=== PATIENT | female | born 2000 | race Caucasian/White ===

== ENCOUNTER 2020-09-16 02:23 | Emergency (ER) | payer OTHER, SELFPAY ==
[2020-09-16 02:32] VITALS: BP 129/65; PULSE 87; RESP 18; TEMP 36.3; O2SAT 99; BMI 35.9
[2020-09-16 04:00] VITALS: BP 129/65; PULSE 87; RESP 18; TEMP 36.3; O2SAT 99
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
== END 2020-09-16 06:44 | disposition home or self-care (01) ==
PROVIDERS: Emergency Provider Emergency Medicine Emergency Medical Services
DX: S09.90XA Unspecified injury of head, initial encounter (principal); V47.1XXA Car passenger injured in collision with fixed or stationary object in nontraffic accident, initial encounter; Y93.89 Activity, other specified; Y92.414 Local residential or business street as the place of occurrence of the external cause; Y99.9 Unspecified external cause status
CPT/HCPCS: 99283; 99284

== ENCOUNTER 2020-11-12 23:13 | Emergency (ER) | payer OTHER, SELFPAY ==
[2020-11-12 23:28] VITALS: BP 112/72; PULSE 88; RESP 16; TEMP 36.9; O2SAT 99; BMI 34.0
--- NOTE | 2020-11-12 23:37 | ED.DENTAL ---
HPI - Dental/Oral General Chief complaint: Dental/Oral Stated complaint: tooth infection Time Seen by Provider: 11/12/20 23:35 Source: patient Mode of arrival: ambulatory Limitations: no limitations History of Present Illness MD Complaint: tooth pain Location: Tooth # (R lower wisdom tooth) Onset (ago): month(s) (1 month ) Duration: constant Severity: moderate Relieving factors: nothing Exacerbating factors: chewing, cold and heat Associated symptoms: gum swelling Treatment prior to arrival: none Related Data Previous Rx's Medication Instructions Recorded ibuprofen 400 mg tablet 400 mg PO Q6H PRN #20 tab 09/16/20 amoxicillin 875 mg-potassium 1 tab PO BID #14 tab 11/12/20 clavulanate 125 mg tablet (Augmentin) hydrocodone 5 mg-acetaminophen 325 1 tab PO Q6H PRN #12 tab 11/12/20 mg tablet Allergies Allergy/AdvReac Type Severity Reaction Status Date / Time No Known Allergies Allergy Verified 11/12/20 23:27 [No Known Allergies*] Review of Systems Review of Systems: Constitutional : No Fever, No Chills ENT/Mouth : No swallowing difficulty, no change in voice, positive dental pain, positive jaw pain, no facial swelling Eyes: No Eye Pain, No Swelling Cardiovascular : No Chest Pain, No SOB Respiratory : No Cough, No Sputum Gastrointestinal : No Nausea, No Vomiting, No Diarrhea Genitourinary : No Dysuria Musculoskeletal : No Myalgias Skin : No rash Neuro : No Weakness, No Numbness, No Headache PMFSH Past Medical History Attestation statement: The following information was validated with the patient. Medical History (Updated 11/12/20 @ 23:52 by Debby Seals DO) Dental impaction Social History Social History Alcohol intake: unknown Patient Tobacco Use Status: Tobacco use Unknown Advance Directives: No Patient : No Physical Exam Vital Signs: Vital Signs: Last Vital Signs Temp 98.5 F 11/12/20 23:28 Pulse 88 11/12/20 23:28 Resp 16 11/12/20 23:28 BP 112/72 11/12/20 23:28 Pulse Ox 99 11/12/20 23:28 Body Mass Index 34.0 Appearance: Alert. Oriented X3. No acute distress. Eyes: Pupils equal, round and reactive to light. ENT: Pharynx normal. R lower wisdom tooth is impacted - gingival erythema and ttp, small firm bump noted inside inner portion of mouth near tooth but it is not fluctuant, no trismus, no sublingual or submandibular ttp Neck: Normal inspection. Neck supple. CVS: Normal heart rate and rhythm. Pulses normal. Respiratory: No respiratory distress. Breath sounds normal. Abdomen: Soft and non-tender. Skin: Skin warm and dry. Normal skin color. Extremities: No lower extremity edema. Neuro: Oriented X 3. No motor deficit. No sensory deficit. MDM - Dental/Oral MDM Narrative Medical decision making narrative: 20 yo female with impacted R lower wisdom tooth - no kaylyn abscess or concern for deeper space infection - has plan to see oral surgery as outpatient - start on antibiotics, otherwise not toxic Discharge Plan Discharge Clinical Impression: Dental impaction Patient Disposition: Home, Self-Care Instructions: Toothache (ED) Additional Instructions: return to ED for any worsening symptoms or concerns please follow up with oral surgeon Prescriptions: New hydrocodone-acetaminophen 5-325 mg tablet 1 tab PO Q6H PRN (Reason: pain) Qty: 12 RF: 0 amoxicillin-pot clavulanate [Augmentin] 875-125 mg tablet 1 tab PO BID Qty: 14 RF: 0 No Action ibuprofen 400 mg tablet 400 mg PO Q6H PRN (Reason: pain) Qty: 20 RF: 0
[2020-11-13] MEDS: HYDROcodone Bit/Acetam 5/325 TABLET 1 TAB PO (00:29)
[2020-11-13] MEDS: Ondansetron ODT 4 MG TAB.RAPDIS TRANSLINGU (00:30)
[2020-11-13] MEDS: Amoxicillin/Potassium Clav 875 MG TABLET PO (00:30)
== END 2020-11-13 00:46 | disposition home or self-care (01) ==
PROVIDERS: Emergency Provider Emergency Medicine
DX: K01.1 Impacted teeth (principal)
CPT/HCPCS: 99283; 99284

== ENCOUNTER 2021-04-18 10:44 | Outpatient (REF) | payer OTHER, SELFPAY ==
[2021-04-18 11:25] LABS: Hemoglobin 12.1 g/dl (12.0-16.0); Mean Corpuscular HGB Conc 31.8 g/dl (31.0-35.0); Mean Corpuscular Hemoglobin 25.3 pg (27.0-33.0); Mean Corpuscular Volume 79.3 fL (80.0-98.0); Mean Platelet Volume 10.3 fL (9.4-12.3); Platelet Count 230 X10*3/uL (160-400); Red Blood Count 4.79 X10*6/uL (4.20-5.50); Red Cell Distribution Width 13.7 % (11.0-16.0); White Blood Count 4.1 X10*3/uL (4.8-10.8)
[2021-04-18 12:00] LABS: Alanine Aminotransferase 13 U/L (0-31); Albumin Level 3.9 g/dL (3.5-5.0); Alkaline Phosphatase 52 U/L (39-117); Anion Gap 9 (12-20); Aspartate Amino Transferase 11 U/L (5-31); Bilirubin Direct < 0.2 mg/dL (0.0-0.5); Bilirubin Total 0.4 mg/dL (0.0-1.0); Blood Urea Nitrogen 14 mg/dL (9-16); Calcium 9.4 mg/dL (8.4-10.2); Carbon Dioxide 26 mmol/L (22-29); Chloride 107 mmol/L (96-108); Cholesterol 186 mg/dL; Estimated Glomerular Filt Rate > 60; Glucose Fasting 95 mg/dL (60-99); HDL Cholesterol 64 mg/dL; LDL Cholesterol Calculated 103 mg/dl; Potassium 4.2 mmol/L (3.3-5.1); Sodium 138 mmol/L (135-145); Total Protein 6.7 g/dL (6.5-8.0); Triglycerides 98 mg/dL
[2021-04-18 12:22] LABS: TSH reflex Free T4 2.22 uIU/mL (0.32-4.0)
== END 2021-04-18 10:45 | disposition home or self-care (01) ==
LOC: HO.LAB 10:44
PROVIDERS: PCP Nurse Practitioner Family; Visit Provider Nurse Practitioner Family
DX: E78.00 Pure hypercholesterolemia, unspecified (principal); J30.89 Other allergic rhinitis; F41.9 Anxiety disorder, unspecified; F32.A Depression, unspecified; Z76.89 Persons encountering health services in other specified circumstances
CPT/HCPCS: 36415; 80048; 80061; 80076; 84443; 85027

== ENCOUNTER 2021-04-25 09:08 | Outpatient (REF) | payer OTHER, SELFPAY ==
[2021-04-25 09:57] LABS: COVID-19 Test Positive (Negative)
== END 2021-04-25 09:09 | disposition home or self-care (01) ==
LOC: HO.LAB 09:08
PROVIDERS: Visit Provider Internal Medicine
DX: Z20.822 Contact with and (suspected) exposure to COVID-19 (principal)
CPT/HCPCS: 87635; C9803

== ENCOUNTER 2021-04-27 11:30 | Outpatient (REF) | payer OTHER, SELFPAY ==
[2021-04-27 11:47] LABS: COVID-19 Test Positive (Negative)
== END 2021-04-27 11:31 | disposition home or self-care (01) ==
LOC: HO.LAB 11:30
PROVIDERS: Visit Provider Internal Medicine
DX: Z20.822 Contact with and (suspected) exposure to COVID-19 (principal)
CPT/HCPCS: 87635; C9803

== ENCOUNTER 2022-01-31 14:18 | Outpatient (REF) | payer OTHER, SELFPAY ==
[2022-01-31 19:05] LABS: CT PCR NOT DETECTED (Not Detect.); NG PCR NOT DETECTED (Not Detect.)
[2022-02-01 09:15] LABS: BV Int Neg Control Negative (Negative); BV Int Pos Control Positive (Positive)
== END 2022-01-31 14:19 | disposition home or self-care (01) ==
LOC: HO.LNP 14:18
PROVIDERS: Visit Provider Advanced Practice Midwife
DX: Z01.419 Encounter for gynecological examination (general) (routine) without abnormal findings (principal); Z87.42 Personal history of other diseases of the female genital tract
CPT/HCPCS: 87480; 87491; 87510; 87591; 87660; 88142

== ENCOUNTER 2022-03-07 15:23 | Outpatient (REF) | payer OTHER, SELFPAY ==
--- NOTE | ~2022-03-07 | US_ITS ---
EXAMINATION: US PELVIS CLINICAL INFORMATION: History of ovarian cyst, regular cycle, last menstrual period 02/26/2022 COMPARISON: None TECHNIQUE: Ultrasound of the pelvis is performed using both transabdominal and transvaginal transducers along with Doppler. Transvaginal imaging is performed due to inadequate visualization transabdominally. FINDINGS: The uterus is heterogeneous and measures 6.6 x 3.1 x 4.0 cm. No discrete fibroids. No significant free fluid. Complex cyst measuring 0.8 x 0.5 x 0.6 cm at the lower level of the cervix, possibly a nabothian cyst. Endometrial thickness is 0.8 cm. No significant free fluid. Right ovary measures 3.5 x 1.9 x 2.5 cm, volume 8.7 mL. Left ovary measures 2.8 x 1.8 x 1.9 cm, volume 5.0 mL. Bilateral ovaries demonstrate multiple small follicles. US/US pelvic and transvaginal IMPRESSION: 1. Complex 0.8 cm cyst at the lower level of the cervix may represent a nabothian cysts. 2. Endometrial thickness is 0.8 cm and endometrium appears multilayered. 3. Bilateral ovaries as detailed above with multiple small follicles.
== END 2022-03-07 15:24 | disposition home or self-care (01) ==
LOC: HO.US 15:23
PROVIDERS: Visit Provider Advanced Practice Midwife
DX: Z87.42 Personal history of other diseases of the female genital tract (principal); Z12.4 Encounter for screening for malignant neoplasm of cervix
CPT/HCPCS: 76830; 76856

== ENCOUNTER 2022-06-21 16:21 | Outpatient (REF) | payer OTHER, SELFPAY ==
--- NOTE | ~2022-06-21 | US_ITS ---
EXAMINATION: US PELVIS CLINICAL INFORMATION: Personal history of other diseases of the female genital tract. COMPARISON: Pelvic ultrasound 03/07/2022. TECHNIQUE: Ultrasound of the pelvis is performed using both transabdominal and transvaginal transducers along with Doppler. Transvaginal imaging is performed due to inadequate visualization transabdominally. FINDINGS: UTERUS: The uterus is anteverted and measures 6.8 x 3.2 x 3.6 cm. The double wall endometrial thickness is 1.0 mm. The uterus is smooth in contour and has normal myometrial echogenicity. No visible fibroid. Nabothian cysts are present in the cervix. ADNEXA: Both ovaries are visualized. There is normal color flow to the adnexa. There is no ovarian torsion. There is no pelvic ascites or fluid collection. Right ovary measures 3.9 x 2.8 x 2.1 cm for a volume of 12 mL with multiple follicles. Left ovary measures 2.7 x 2.3 x 1.6 cm for a volume of 5.2 mL with multiple follicles. US/US pelvic and transvaginal IMPRESSION: No significant abnormality is seen.
== END 2022-06-21 16:22 | disposition home or self-care (01) ==
LOC: HO.US 16:21
PROVIDERS: PCP Internal Medicine; Visit Provider Advanced Practice Midwife
DX: N88.8 Other specified noninflammatory disorders of cervix uteri (principal); Z87.42 Personal history of other diseases of the female genital tract
CPT/HCPCS: 76830; 76856

== ENCOUNTER → 2022-08-18 09:38 | Outpatient (BNVA) | payer OTHER, SELFPAY | PROVIDERS: PCP Internal Medicine; Visit Provider Advanced Practice Midwife | DX: Z30.09 Encounter for other general counseling and advice on contraception (principal); L70.0 Acne vulgaris; E66.9 Obesity, unspecified; Z87.42 Personal history of other diseases of the female genital tract; Z12.4 Encounter for screening for malignant neoplasm of cervix; Z68.34 Body mass index [BMI] 34.0-34.9, adult | CPT/HCPCS: 99212 ==

== ENCOUNTER 2022-12-07 16:32 | Outpatient (AMB) | payer OTHER, SELFPAY ==
[2022-12-07 16:42] VITALS: BP 120/78; BMI 35.5
--- NOTE | 2022-12-07 16:42 | A.OFFPC_ITS ---
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 Required: No Accompanied by: Self / Same As Patient Allergies No Known Allergies [No Known Allergies*] Allergy (Verified 12/07/22 17:07) Medication List - Last Reconciled 12/07/22 by Yessica Campos MD albuterol sulfate 90 mcg/actuation (Ventolin HFA) 2 puffs inhalation Q4-6H PRN cetirizine 10 mg PO DAILY clindamycin phosphate 1% 1 appl topical DAILY norelgestromin-ethin.estradiol 150-35 mcg/24 hr (Xulane) 1 patch topical QWEEK Tobacco use date assessed: 04/20/22 Dental Screening Dental Screen Date: 12/07/22 Did you have a dental visit in the last 12 months?: No Did you have a dental problem in the last 6 months where you did not have access to dental care?: No Was dental information given to patient?: Patient has dentist HPI HPI Comments History of Present Illness Details This is a 22-year-old female with mild major depression, anxiety, obesity and mild persistent asthma that comes today for follow-up on her conditions. She will be referred to counseling for depression with anxiety. She is obese with a BMI of 35.5 and was advised to diet and exercise to reach BMI goal less than 30. Use rescue inhaler about once a month. Denies any chest pain or shortness of breath. No fever or cough. [facility] Medical History (Updated 12/08/22 @ 08:33 by Yessica Campos MD) Dental impaction Surgical History History of spinal surgery Hx of tonsillectomy Family History Mother Asthma Carpal tunnel syndrome Father No problems noted. 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 Ted Ortiz, Tequila Carrasco, Edgar Bueno and colleagues, with an educational lizzie from [employer]. Review of Systems Const All systems reviewed & are unremarkable except as noted in HPI and below Eyes Reports no additional complaints, Denies change in vision and Denies other visual disturbances Card Denies chest pain at rest, Denies chest pain with activity, Denies edema, Denies irregular heart rhythm, Denies claudication, Denies dyspnea, Denies dyspnea on exertion, Denies orthopnea, Denies paroxysmal nocturnal dyspnea and Denies slow heart rate Resp Denies cough, Denies dyspnea and Denies dyspnea on exertion GI Denies abdominal pain, Denies change in bowel habits, Denies excessive flatus, Denies nausea and Denies vomiting Denies urinary incontinence, Denies urinary hesitancy and Denies urinary urgency Musc Denies abnormal gait, Denies atrophy, Denies deformity and Denies limited range of motion Skin/Breast Denies bleeding lesions, Denies changing lesions and Denies rash Neuro Denies abnormal gait, Denies behavioral changes and Denies lack of coordination Psych Denies behavioral changes Physical exam (Primary Care) Vital Signs: Last Vital Signs BP 120/78 12/07/22 16:42 BMI result Body Mass Index 35.5 Tobacco/Smoking Status: Tobacco use Status Tobacco use date assessed 04/20/22 12/07/22 16:48 Patient Tobacco Use Status Never used Tobacco 12/07/22 16:48 e-Cigarette/Vaping Use Never Used 12/07/22 16:48 Thrive Assessment: Date of Thrive Assessment Date Thrive assessed 04/20/22 12/07/22 16:48 Eyes General: appearance normal, both eyes and all related structures Eyelids: Yes eyelids normal Conjunctivae: conjunctivae normal Neck Neck: Yes normal visual inspection and Yes supple Resp Effort & Inspection: normal respiratory effort Auscultation: clear to auscultation bilaterally Cardio Jugular venous distension: no JVD Rate: regular rate Rhythm: regular rhythm Heart sounds: S1 normal heart sound present and S2 normal heart sound present Extrem General: Yes full ROM Assessment and Plan Assessment & Plan (1) Mild major depression: Code(s): F32.0 - Major depressive disorder, single episode, mild Plan: Referred to counseling (2) TAMERA (generalized anxiety disorder): Code(s): F41.1 - Generalized anxiety disorder Plan: Referred to counseling (3) Mild persistent asthma: Code(s): J45.30 - Mild persistent asthma, uncomplicated Plan: Use rescue inhaler as needed (4) Obesity (BMI 35.0-39.9 without comorbidity): Code(s): E66.9 - Obesity, unspecified Plan: Start diet and exercise. BMI goal is less than 30. Orders: Referrals Counseling Referral F32.0 - Major depressive disorder, single episode, mild, F41.1 - Generalized anxiety disorder Coding Level of Care Code Est Pt Level 4 (67270) Diagnoses Mild major depression F32.0 TAMERA (generalized anxiety disorder) F41.1 Mild persistent asthma J45.30 Obesity (BMI 35.0-39.9 without comorbidity) E66.9 Time Spent (min) 22
== END 2022-12-07 17:16 | disposition home or self-care (01) ==
PROVIDERS: PCP Internal Medicine; Visit Provider Internal Medicine
DX: J45.30 Mild persistent asthma, uncomplicated (principal); F32.0 Major depressive disorder, single episode, mild; E66.9 Obesity, unspecified; Z68.35 Body mass index [BMI] 35.0-35.9, adult; F41.1 Generalized anxiety disorder
CPT/HCPCS: 99214

== ENCOUNTER 2023-04-25 17:31 | Outpatient (AMB) | payer OTHER, SELFPAY ==
--- NOTE | 2023-04-25 17:35 | MHC.PC.OV ---
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 Required: No Accompanied by: Self / Same As Patient Allergies No Known Allergies [No Known Allergies*] Allergy (Verified 04/25/23 17:45) Medication List - Last Reconciled 04/25/23 by Yessica Campos MD albuterol sulfate 90 mcg/actuation (Ventolin HFA) 2 puffs inhalation Q4-6H PRN cetirizine 10 mg PO DAILY clindamycin phosphate 1% 1 appl topical DAILY norelgestromin-ethin.estradiol 150-35 mcg/24 hr (Xulane) 1 patch topical QWEEK Tobacco use date assessed: 04/25/23 Dental Screening Dental Screen Date: 04/25/23 Did you have a dental visit in the last 12 months?: Yes Did you have a dental problem in the last 6 months where you did not have access to dental care?: No Was dental information given to patient?: Patient has dentist HPI HPI Comments History of Present Illness Details This is a 23-year-old female that comes for her physical exam. Last Pap smear was 2021. Has mild major depression and would like counseling. Complains of left shoulder pain with limited elevation and abduction and will be referred to physical therapy. No chest pain or shortness of breath. [facility] Medical History Dental impaction Surgical History Hx of tonsillectomy History of spinal surgery Family History Mother Asthma Carpal tunnel syndrome Father No problems noted. 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 1. Little interest or pleasure in doing things: several days 2. Feeling down, depressed, or hopeless: several days 3. Trouble falling or staying asleep, or sleeping too much: several days 4. Feeling tired or having little energy: nearly every day 5. Poor appetite or overeating: several days 6. Feeling bad about yourself - or that you are a failure or have let yourself or your family down: several days 7. Trouble concentrating on things, such as reading the newspaper or watching television: nearly every day 8. Moving or speaking so slowly that other people could have noticed. Or the opposite - being so fidgety or restless that you have been moving around a lot more than usual: more than half the days 9. Thoughts that you would be better off or of hurting yourself in some way: not at all Total score: 13 Depression Screening Interpretation: Positive Depression Screening Follow-up: Existing condition and Community Mental Health Worker F/U Depression Screening Done: Yes 70458 - PHQ-9 Billing: Yes Source: Developed by Drs. Ted Ortiz, Tequila Carrasco, Edgar Bueno and colleagues, with an educational lizzie from [employer]. Thrive Questionnaire Date Thrive assessed: 04/25/23 I am a: Patient What is your living situation today?: I have a steady place to live Within the past 12 months, did the food you bought not last and you didn't have the money to get more?: Never true Within the past 12 months, did you worry whether your food would run out before you got money to buy more?: Never true Do you have trouble paying for medicines?: No Do you have trouble getting transportation to medical appointments?: No Do you have trouble paying your heating and electricity bill?: No Do you have trouble taking care of your child, family member or friend?: No Do you have trouble with day-to-day activities such as bathing, preparing meals, shopping, managing finances, etc.?: No Are you currently unemployed and looking for a job?: No Are you interested in more education?: No Please select the resources that you would like help with: None AUDIT C Alcohol Use Questionnaire (AUDIT-C) 1. How often do you have a drink containing alcohol?: Never Total Score: 0 Score Reviewed/Action Taken: No TAMERA-7 AMB Questionnaire TAMERA-7 Date TAMERA - 7 assessed: 04/25/23 Feeling nervous, anxious, or on edge: 2 = More than half the days Not being able to stop or control worryin = Not at all Worrying too much about different things: 1 = Several days Trouble relaxin = Several days Being so restless that it is hard to sit still: 1 = Several days Becoming easily annoyed or irritable: 1 = Several days Feeling afraid as if something awful might happen: 1 = Several days Total TAMERA-7 score (0-4 normal; 5-9 mild; 10-14 moderate; 15-21 severe): 7 Source: Developed by Drs. Ted Ortiz, Tequila Carrasco, Edgar Bueno and colleagues, with an educational lizzie from [employer]. TAMERA-7 Assessment Billing TAMERA-7 Assessment Tool: TAMERA-7 Assessment 74493 Review of Systems Const All systems reviewed & are unremarkable except as noted in HPI and below Eyes Reports no additional complaints, Denies change in vision and Denies other visual disturbances Card Denies chest pain at rest, Denies chest pain with activity, Denies edema, Denies irregular heart rhythm, Denies claudication, Denies dyspnea, Denies dyspnea on exertion, Denies orthopnea, Denies paroxysmal nocturnal dyspnea and Denies slow heart rate Resp Denies cough, Denies dyspnea and Denies dyspnea on exertion GI Denies abdominal pain, Denies change in bowel habits, Denies excessive flatus, Denies nausea and Denies vomiting Denies urinary incontinence, Denies urinary hesitancy and Denies urinary urgency Musc Denies abnormal gait, Denies atrophy, Denies deformity and Denies limited range of motion Skin/Breast Denies bleeding lesions, Denies changing lesions and Denies rash Neuro Denies abnormal gait, Denies behavioral changes, Denies confusion and Denies lack of coordination Psych Denies behavioral changes and Denies confusion Physical exam (Primary Care) Vital Signs: Last Vital Signs BP 130/80 04/25/23 17:37 BMI result Body Mass Index 34.7 Tobacco/Smoking Status: Tobacco use Status Tobacco use date assessed 04/25/23 04/25/23 17:46 Patient Tobacco Use Status Never used Tobacco 04/25/23 17:37 e-Cigarette/Vaping Use Never Used 04/25/23 17:37 PHQ-9: PHQ-9 Score PHQ-9: Total score 13 04/25/23 17:49 Depression Screening Interpretation: Positive Depression Screening Follow-up: Existing condition and Community Mental Health Worker F/U Thrive Assessment: Date of Thrive Assessment Date Thrive assessed 04/25/23 04/25/23 17:46 Const General: No confusion Orientation/consciousness: patient oriented x3 and No confusion HENMT Head: Yes normal to inspection, Yes normocephalic and Yes atraumatic Ears: external ears normal Eyes General: appearance normal, both eyes and all related structures Eyelids: Yes eyelids normal Conjunctivae: conjunctivae normal Neck Neck: Yes normal visual inspection and Yes supple Resp Effort & Inspection: normal respiratory effort Auscultation: clear to auscultation bilaterally Cardio Jugular venous distension: no JVD Rate: regular rate Rhythm: regular rhythm Heart sounds: S1 normal heart sound present and S2 normal heart sound present GI Inspection: Yes normal to inspection Palpation (GI): Soft to palpation and nontender Auscultation: normal bowel sounds Skin General skin exam: no rashes or lesions noted Neuro General: patient oriented x3, no focal motor deficits and No confusion Extrem General: Yes full ROM Psych Appearance: grossly normal Assessment and Plan Assessment & Plan (1) Physical exam: Code(s): Z00.00 - Encounter for general adult medical examination without abnormal findings Plan: Repeat in a year. (2) Mild major depression: Code(s): F32.0 - Major depressive disorder, single episode, mild Plan: Referred to counseling. Orders: Orders Comprehensive [place]. Panel Fast Today Z00.00 - Encounter for general adult medical examination without abnormal findings PT Evaluation and Treatment Today M25.512 - Pain in left shoulder Lipid Panel Today Z00.00 - Encounter for general adult medical examination without abnormal findings HIV Ab/Ag Today Z20.2 - Contact with and (suspected) exposure to infections with a predominantly sexual mode of transmission Syphilis Screen Today Z20.2 - Contact with and (suspected) exposure to infections with a predominantly sexual mode of transmission CT NG by PCR Today Z20.2 - Contact with and (suspected) exposure to infections with a predominantly sexual mode of transmission Referrals Counseling Referral F32.0 - Major depressive disorder, single episode, mild Medications: New naproxen 500 mg PO BID PRN 10 tabs 0RF pain 5 days Coding Level of Care Code Est Pt Prev Care 18-39y([id number]) Diagnoses Physical exam Z00.00 Mild major depression F32.0 Additional Codes TAMERA-7 Assessment Billing - TAMERA-7 Assessment Tool: TAMERA-7 Assessment 30630 ([id number]) Time Spent (min) 32
[2023-04-25 17:37] VITALS: BP 130/80; BMI 34.7
== END 2023-04-25 17:56 | disposition home or self-care (01) ==
LOC: HO.HMGH 17:31
PROVIDERS: PCP Internal Medicine; Visit Provider Internal Medicine
DX: Z00.00 Encounter for general adult medical examination without abnormal findings (principal); F32.0 Major depressive disorder, single episode, mild
CPT/HCPCS: 99395

== ENCOUNTER 2023-07-05 11:19 | Outpatient (REF) | payer OTHER, SELFPAY ==
[2023-07-05 12:55] LABS: Alanine Aminotransferase 16 U/L (0-31); Alkaline Phosphatase 75 U/L (39-117); Anion Gap 11 (12-20); Aspartate Amino Transferase 14 U/L (5-31); Bilirubin Total 0.4 mg/dL (0.0-1.0); Blood Urea Nitrogen 13 mg/dL (9-16); Calcium 9.3 mg/dL (8.4-10.2); Carbon Dioxide 28 mmol/L (22-29); Chloride 106 mmol/L (96-108); Cholesterol 167 mg/dL (<200); Estimated Glomerular Filt Rate > 60; Glucose Fasting 91 mg/dL (60-99); HDL Cholesterol 59 mg/dL (>40); LDL Cholesterol Calculated 102 mg/dL (<100); Potassium 4.1 mmol/L (3.3-5.1); Sodium 141 mmol/L (135-145); Total Protein 6.8 g/dL (6.5-8.0); Triglycerides 34 mg/dL (<150)
[2023-07-05 15:37] LABS: CT PCR NOT DETECTED (Not Detect.); NG PCR NOT DETECTED (Not Detect.)
[2023-07-06 04:00] LABS: Syphilis Screen Nonreactive (Nonreactive)
[2023-07-06 04:17] LABS: HIV AB/AG Nonreactive (Nonreactive); HIV Num 1 0.05 S/CO (0.00-0.99)
== END 2023-07-05 11:20 | disposition home or self-care (01) ==
LOC: HO.LAB 11:19
PROVIDERS: PCP Internal Medicine; Visit Provider Internal Medicine
DX: Z00.00 Encounter for general adult medical examination without abnormal findings (principal); Z11.4 Encounter for screening for human immunodeficiency virus [HIV]; Z20.2 Contact with and (suspected) exposure to infections with a predominantly sexual mode of transmission
CPT/HCPCS: 0353U; 80053; 80061; 86780; 87389

== ENCOUNTER 2023-08-28 08:56 | Outpatient (AMB) | payer OTHER, SELFPAY ==
--- NOTE | 2023-08-28 09:06 | A.OFFVIS_ITS ---
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 Required: No Information Interpreted: clinical only Traffic Division Commanding Officer: Traffic Division Commanding Officer Present Allergies No Known Allergies [No Known Allergies*] Allergy (Verified 08/28/23 09:07) Medication List - Last Reconciled 08/28/23 by Ayesha Kate CNM albuterol sulfate 90 mcg/actuation (Ventolin HFA) 2 puffs inhalation Q4-6H PRN cetirizine 10 mg PO DAILY clindamycin phosphate 1% 1 appl topical DAILY naproxen 500 mg PO BID PRN 5 days norelgestromin-ethin.estradiol 150-35 mcg/24 hr (Xulane) 1 patch topical QWEEK Is last menstrual period known: Yes Last menstrual period: 08/22/23 HPI HPI 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 She also wants refills on her patches. She using them help her have regular periods as well as for control. She has wondered and we have discussed previously whether not she had all of the signs of PCOS and I previously ordered lab work for her and she thought she had gotten it but I can not find evidence in the system of those labs done in the last year so she still would be interested in getting them done so I will reorde r some of the PCOS marker labs. I reviewed that because she has a history very irregular periods before going on the control patch and multiple follicles in both of her ovaries that she has several of the signs already in addition she does get acne though she says she does not get increased facial hair she is overweight and is trying to be healthier she has an exercise machine in her house that she uses. She is concerned about the PCOS from the point of view of future possible fertility issues. She is not interested in having baby now but maybe in her late 20s she is in a relationship that is good right now. [facility] Medical History Dental impaction Surgical History Hx of tonsillectomy History of spinal surgery Family History Mother Asthma Carpal tunnel syndrome Father No problems noted. 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 Current occupational exposures/hazards: No Cognitive needs: No Hearing needs: No Vision needs: Yes (glasses) Female Reproductive History Menstrual Age of Menarche: 10 Duration of menses: 3-5 days Date of last menstrual period: 08/22/23 control method: patch Total pregnancies: 0 Date of last pap smear: 02/01/22 (negative) Physical Exam Vital Signs: Last Vital Signs BP 122/70 08/28/23 09:07 BMI result Body Mass Index 36.4 Const General: healthy appearing, comfortable, no acute distress, well developed and alert Nutritional Appearance: average body habitus Orientation/consciousness: patient oriented x3 Limitations: no limitations HEENT Head: Yes normocephalic Neck Neck: Yes normal visual inspection Chest Chest palpation & inspection: normal inspection of the chest Breast/axilla inspection: normal inspection of the breasts and normal inspection of the axillae Breast/axilla palpation: normal palpation of the breasts and normal palpation of the axillae Resp Effort & Inspection: normal respiratory effort GI Inspection: Yes normal to inspection, No Abdominal wall edema and No distended Palpation (GI): Soft to palpation and nontender Other: External exam within normal limits vagina pink and moist cervix pink nulliparous uterus small midposition to anteverted. Mobile and nontender adnexa nontender good tone Kegel. General: Yes bladder normal to palpation External Female Exam: normal external appearance and normal appearance of the urethra Speculum Exam - Vagina: normal appearance of the vagina, normal palpation and normal vaginal discharge Speculum Exam - Cervix: normal appearance of the cervix, normal palpation and nontender Bimanual exam- vagina & uterus: normal bimanual exam, normal palpation, uterine size normal, bladder normal to palpation, consistency normal, normal palpation, uterine mobility normal, uterine shape normal, No Cervical tenderness present, non-tender and no cervical motion tenderness Bimanual Exam- Adnexa, other: normal adnexae, no masses, normal and No adnexal tenderness Neuro General: patient oriented x3 Assessment & Plan Assessment & Plan (1) Acne vulgaris: Code(s): L70.0 - Acne vulgaris Category: Medical (2) Hx of ovarian cyst: Code(s): Z87.42 - Personal history of other diseases of the female genital tract Category: Medical (3) History of irregular menstrual cycles: Comment: was started on patches at [facility] as a teen to manage, is continuing on patches with regular cycles, multiple follicles noted on ultrasounds, hormone levels being ordered... Code(s): Z87.42 - Personal history of other diseases of the female genital tract Category: Medical (4) Obesity (BMI 35.0-39.9 without comorbidity): Code(s): E66.9 - Obesity, unspecified Category: Medical (5) Screen for sexually transmitted diseases: Code(s): Z11.3 - Encounter for screening for infections with a predominantly sexual mode of transmission Category: Medical (6) Well woman exam with routine gynecological exam: Code(s): Z01.419 - Encounter for gynecological examination (general) (routine) without abnormal findings Category: Medical (7) Cervical cancer screening: Comment: pap done 01/31/22= negative. Code(s): Z12.4 - Encounter for screening for malignant neoplasm of cervix Category: Medical (8) control counseling: Code(s): Z30.09 - Encounter for other general counseling and advice on contraception Category: Medical Plan -----Discussed in this visit the following: healthy balanced diet, regular and consistent exercise, getting recommended health screens, doing the best she can for her particular health concerns, kegel exercises, pap smear screening and followup recommendations, mammography screening and SBE, normal changes in cycles in her life stage--- . I review the use of the patches she is using them correctly but she was not as clear about when she had to restart the patch she was describing it as being connected to when her period ended and I clarified that the patch needs to be used for 3 consecutive weeks 7 days at a time and then removed and left off for 7 days but a new 1 has to be replaced at exactly 1 week from when it was taken off I refilled her prescription for another year. In addition we again reviewed the whole issue of her irregular menstrual history history of the increased follicles noted on both ovaries and previous ul trasounds and her other symptoms that go along with PCOS of note she did have an elevated blood pressure a year ago at another provider's visit also reviewed her increased LDL that was noted with previous labs by her primary care provider reviewed that many of these all point to the picture of polycystic ovarian syndrome and what she is concerned about it for future fertility in some way she already has the diagnosis the most important thing is for her to keep working on maintaining a weight that is lower so that there are lower levels of circulating hormones in her system and that for future use if she can not teen the healthiest states she can be in when she wants to children she should simply go off the patch and start trying right away she should keep very close records her cycles when she has sex and signs and symptoms of ovulation and I described when that occurs normally and if in 6 months' time after going off the patch and trying and documenting, if she did not conceive by then it would be potts to seek out reproductive assistance but that would be in the future when she goes off control for now in some ways it may be protecting her. At her request I reordered some of the PCOS labs and she get them done when she can of note when I was putting in the orders I did see there were some more fasting labs from her primary care provider in the system as well she intends to get them all done together and ask the lab to draw all of them together. We will have a tele visit to review the results whenever she does get them done. She is on the portal as well. Orders: Orders Testosterone, Free/Total Today E66.9 - Obesity, unspecified, L70.0 - Acne vulgaris, N92.6 - Irregular menstruation, unspecified, Z87.42 - Personal history of other diseases of the female genital tract Prolactin Today E66.9 - Obesity, unspecified, L70.0 - Acne vulgaris, Z87.42 - Personal history of other diseases of the female genital tract DHEA Sulfate Today E66.9 - Obesity, unspecified, L70.0 - Acne vulgaris, Z87.42 - Personal history of other diseases of the female genital tract CT NG by PCR Today Z01.419 - Encounter for gynecological examination (general) (routine) without abnormal findings Bacterial Vaginosis Panel Today Z01.419 - Encounter for gynecological examination (general) (routine) without abnormal findings Thyroid Stimulating Hormone Today E66.9 - Obesity, unspecified, L70.0 - Acne vulgaris, Z87.42 - Personal history of other diseases of the female genital tract Medications: Refilled norelgestromin-ethin.estradiol 150-35 mcg/24 hr (Xulane) Apply 1 patch every week for 3 weeks, leave off for 1 week then restart cycle. 1 patch topical QWEEK 9 ea 4RF Coding Level of Care Code Est Pt Prev Care 18-39y(50790) Diagnoses Acne vulgaris L70.0 Hx of ovarian cyst Z87.42 History of irregular menstrual cycles Z87.42 Obesity (BMI 35.0-39.9 without comorbidity) E66.9 Screen for sexually transmitted diseases Z11.3 Well woman exam with routine gynecological exam Z01.419 Cervical cancer screening Z12.4 control counseling Z30.09
[2023-08-28 09:07] VITALS: BP 122/70; BMI 36.4
== END 2023-08-28 10:10 | disposition home or self-care (01) ==
PROVIDERS: PCP Internal Medicine; Visit Provider Advanced Practice Midwife
DX: Z01.419 Encounter for gynecological examination (general) (routine) without abnormal findings (principal); L70.0 Acne vulgaris; E66.9 Obesity, unspecified; Z87.42 Personal history of other diseases of the female genital tract
CPT/HCPCS: 99395

== ENCOUNTER 2023-08-28 08:56 | Outpatient (REF) | payer OTHER, SELFPAY ==
[2023-08-29 09:15] LABS: Bacterial Vaginosis PCR NEGATIVE (Negative); Candida Group PCR NOT DETECTED (Not Detect); Candida glab krusei PCR NOT DETECTED (Not Detect); Trichomonas vaginalis PCR NOT DETECTED (Not Detect)
[2023-08-29 09:24] LABS: CT PCR NOT DETECTED (Not Detect.); NG PCR NOT DETECTED (Not Detect.)
== END 2023-08-28 08:57 | disposition home or self-care (01) ==
LOC: HO.LAB 08:56
PROVIDERS: PCP Internal Medicine; Visit Provider Advanced Practice Midwife
DX: Z01.419 Encounter for gynecological examination (general) (routine) without abnormal findings (principal); Z11.3 Encounter for screening for infections with a predominantly sexual mode of transmission; L70.0 Acne vulgaris
CPT/HCPCS: 0352U; 0353U; 99395

== ENCOUNTER 2023-10-29 20:01 | Emergency (ER) | payer OTHER, SELFPAY ==
--- NOTE | ~2023-10-29 | XR_ITS ---
EXAMINATION: XR THORACOLUMBAR SPINE CLINICAL INFORMATION: Pain COMPARISON: None available. TECHNIQUE: AP and lateral views. FINDINGS: Thoracolumbar spinal fusion hardware is partially visualized, which obscures some underlying osseous structures. Alignment along the spine appears anatomic in this setting. Vertebral body heights also appear maintained. No acute fracture is seen. XR/XR thoracic spine 2V IMPRESSION: No acute findings identified. Thoracolumbar spinal fusion hardware partially visualized.
[2023-10-29 20:09] VITALS: BP 114/73; PULSE 91; RESP 18; TEMP 36.6; O2SAT 99; BMI 36.2
--- NOTE | 2023-10-29 22:16 | PC.NURSE ---
pt not presents in wr at 2150 and 2200
[2023-10-30 00:19] VITALS: BP 105/62; PULSE 73; RESP 16; TEMP 36.4; O2SAT 99
[2023-10-30 02:02] VITALS: BP 113/67; PULSE 70; RESP 16; O2SAT 100
--- NOTE | 2023-10-30 02:54 | ED_ITS ---
HPI - General Adult General Chief complaint: General Medical Stated complaint: L sided neck/pain, no injury Time Seen by Provider: 10/30/23 02:29 Source: patient Mode of arrival: ambulatory Limitations: no limitations History of Present Illness ED Provider: DR. Gao HPI narrative: 23-year-old female came in for evaluation of neck pain radiates to bilateral shoulder but more to the left, pain started 7 days ago, has been taking Tylenol/ ibuprofen for pain came in today for worsening of the pain, shooting radiation of the pain to the left upper extremities, no weakness, no numbness. Patient declined any fever chills, no history of drug abuse. Related Data Home Medications ?Medication ?Instructions ?Recorded ?Confirmed albuterol sulfate 90 mcg/actuation 2 puff inhalation Q4-6H PRN dyspnea 04/20/22 08/28/23 aerosol inhaler (Ventolin HFA) Previous Rx's ?Medication ?Instructions ?Recorded cetirizine 10 mg tablet 10 mg PO DAILY #90 tabs 10/13/21 naproxen 500 mg tablet 500 mg PO BID PRN pain 5 days #10 04/25/23 tabs norelgestromin 150 mcg-e.estradiol 1 patch topical QWEEK #9 ea 08/28/23 35 mcg/24 hr weekly transderm patch (Xulane) clindamycin phosphate 1 % topical 1 appl topical DAILY #30 grams 10/16/23 gel ibuprofen 600 mg tablet 600 mg PO Q8H PRN pain #20 tabs 10/30/23 oxycodone 5 mg tablet 5 mg PO BID PRN pain #10 tabs 10/30/23 Allergies Allergy/AdvReac Type Severity Reaction Status Date / Time No Known Allergies Allergy Verified 10/29/23 20:14 [No Known Allergies*] Review of Systems Review of Systems: All other systems are reviewed and are negative Constitutional: Reports as per HPI and Reports no additional constitutional complaints Eyes: Reports as per HPI and Reports no additional eye complaints Reports system reviewed and no additional complaints, except as documented Cardiovascular: Reports as per HPI and Reports no additional cardiovascular complaints Respiratory: Reports as per HPI and Reports no additional respiratory complaints Gastrointestinal: Reports as per HPI and Reports no additional gastrointestinal complaints Genitourinary: Reports no additional female genitourinary complaints Musculoskeletal: Reports no additional musculoskeletal complaints Skin/Breast: Reports system reviewed and no additional complaints, except as docu Psychiatric: Reports no additional psychiatric complaints Endocrine: Reports no additional endocrine complaints Hematologic/Lymphatic: Reports no additional hematologic/lymphatic complaints Allergic/Immunologic: Reports no additional allergic/immunologic complaints Reports system reviewed and no additional complaints, except as documented and Reports Abnormal speech present [facility] Past Medical History Medical History Dental impaction Surgical History Hx of tonsillectomy History of spinal surgery Family History Family History Mother Asthma Carpal tunnel syndrome Father No problems noted. 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 Current occupational exposures/hazards: No Cognitive needs: No Hearing needs: No Vision needs: Yes (glasses) Physical Exam ED Vital Signs: Vital Signs - 24 hr 10/29/23 20:09 10/30/23 00:19 10/30/23 02:02 Temperature 98 F 97.6 F Pulse Rate 91 73 70 Respiratory Rate 18 16 16 Blood Pressure 114/73 105/62 113/67 Pulse Oximetry 99 99 100 Oxygen Delivery Method Room Air Room Air Room Air 10/30/23 04:03 Temperature 97.9 F Pulse Rate 72 Respiratory Rate 12 Blood Pressure 105/54 L Pulse Oximetry 99 Oxygen Delivery Method Room Air BMI result Body Mass Index 36.2 Vital signs have been reviewed and appear to be correct. Blood pressure elevated. Heart rate normal. Respiratory rate normal. Temperature normal. Oxygen saturation normal. Appearance: Alert. Oriented X3. No acute distress. Head: Normal external exam. Normocephalic. Atraumatic. No Yang signs noted. No raccoon eyes noted Eyes: PERRLA. EOMI. Conjunctiva and sclera normal. Eyelids normal. ENT: TM's Normal. Pharynx normal. Uvula midline. Moist mucous membranes. No trismus noted. No drooling noted. No muffled voice noted. Neck: Increased pain shooting to the left shoulder/ by turning the head to the right, increased pain if raising left above the head. CVS: Normal heart rate and rhythm. Heart sound normal. No murmurs noted. Pulses normal throughout. Respiratory: No respiratory distress. Painless inspiration. Breath sounds normal. No wheezes/rales/rhonchi noted. Chest nontender. No accessory muscle usage noted or decreased air movement noted. Abdomen: Soft and nontender. Bowel sounds normal in all 4 quadrants. No distention noted. No organomegaly noted. No visible injury noted. Back: No CVA tenderness. Full range of motion noted. Skin: Skin warm and dry. Normal skin color. Normal skin turgor. No rashes/lesions/lacerations noted. Extremities: No lower extremity edema. Extremities exhibit normal range of motion. Extremities nontender. Neuro: Oriented X 3. Cranial nerve exam: II-XII are grossly intact No motor deficit. No sensory deficit. Reflexes normal. Course Reevaluation(s) Reevaluation #1: Feels better, pain under better control, no neurological deficit. Physical exam is consistent with cervical radiculopathy will start the patient on oxycodone / NSAIDs and follow-up with PCP Time: 04:00 Medications Administered Discontinued Medications Generic Name Dose Route Start Last Admin Trade Name Freq PRN Reason Stop Dose Admin Oxycodone HCl 5 mg 10/30/23 03:03 10/30/23 03:15 Oxycodone Hcl Immed Release 5 Mg Tablet PO 10/30/23 03:04 5 mg ONCE ONE Administration Medical Decision Making Differential Diagnosis Differential Diagnoses: The differential diagnosis associated with the presentation includes ( cervical radiculopathy, shoulder dislocation.) Admission/Observation Consideration of admission/observation: Escalation of care including admission/observation considered Independent Interpretation I performed an independent interpretation of an: Plain X-Ray ( thoracic spine x- ray: no acute findings identified. Thoracolumbar spinal fusion hardware partially visualized. ) Radiology Impression Discussion of test interpretation with radiology: I have reviewed the radiologist's reading. Discharge Plan Discharge Clinical Impression: Cervical radiculopathy Patient Disposition: Home, Self-Care Instructions: Cervical Radiculopathy (ED) Prescriptions: New oxycodone 5 mg tablet 5 mg PO BID PRN (Reason: pain) Qty: 10 0RF Rx Instructions: Partial Fill upon patient request. ibuprofen 600 mg tablet 600 mg PO Q8H PRN (Reason: pain) Qty: 20 0RF No Action cetirizine 10 mg tablet 10 mg PO DAILY Qty: 90 1RF clindamycin phosphate 1 % gel 1 appl topical DAILY Qty: 30 0RF albuterol sulfate [Ventolin HFA] 90 mcg/actuation HFA aerosol inhaler 2 puff inhalation Q4-6H PRN (Reason: dyspnea) naproxen 500 mg tablet 500 mg PO BID PRN (Reason: pain) 5 Days Qty: 10 0RF Xulane 150-35 mcg/24 hr patch weekly 1 patch topical QWEEK Qty: 9 4RF Rx Instructions: Apply 1 patch every week for 3 weeks, leave off for 1 week then restart cycle. Referrals: Yessica Calvillo MD [Primary Care Provider] - Stand Alone Forms: Work/School Release Interventions: LWBS Worksheet Last Done: 10/29/23 22:17 Print Language: Icelandic
[2023-10-30] MEDS: oxyCODONE HCl Immed Release 5 MG TABLET PO (03:15)
[2023-10-30 04:03] VITALS: BP 105/54; PULSE 72; RESP 12; TEMP 36.6; O2SAT 99
[2023-10-30 06:20] VITALS: BP 118/68; PULSE 64; RESP 16; TEMP 36.8; O2SAT 99
== END 2023-10-30 06:21 | disposition home or self-care (01) ==
PROVIDERS: Emergency Provider Emergency Medicine; PCP Internal Medicine
DX: M54.12 Radiculopathy, cervical region (principal); M54.6 Pain in thoracic spine
CPT/HCPCS: 72070; 99284

== ENCOUNTER 2024-03-24 08:18 | Emergency (ER) | payer BC, SELFPAY ==
[2024-03-24 08:28] VITALS: BP 114/62; PULSE 97; RESP 14; TEMP 37.2; O2SAT 100; BMI 36.6
--- NOTE | 2024-03-24 08:50 | ED.GENADULT ---
HPI - General Adult General Chief complaint: Nausea/Vomiting/Diarrhea Stated complaint: vomiting diarrhea Time Seen by Provider: 03/24/24 08:50 Source: patient Mode of arrival: ambulatory Limitations: no limitations History of Present Illness ED Provider: Carmelita Whitehead PA-C HPI narrative: Patient is a 24 year old assigned female at with a history of depression, anxiety, vertigo, asthma, cervical cyst, ovarian cyst, acne vulgaris, and seasonal allergies presenting to the emergency department today with nausea, vomiting, and diarrhea. Patient states that she has been throwing up with diarrhea since yesterday. Patient states that she has abdominal pain when she vomits but not when at rest. Patient denies any dizziness, lightheadedness, fever, chills, blurry vision, double vision, loss of vision, chest pain, difficulty breathing, shortness of breath, back pain, night sweats, pain with urination, increased urinary frequency, increased urinary urgency, blood in her urine or stool, recent trauma or falls, bowel incontinence, bladder incontinence, or any other complaints at this time. Onset (ago): day(s) (1) Relieving factors: none Exacerbating factors: none Associated symptoms: nausea/vomiting Treatments prior to arrival: none Related Data Home Medications ?Medication ?Instructions ?Recorded ?Confirmed albuterol sulfate 90 mcg/actuation 2 puff inhalation Q4-6H PRN dyspnea 04/20/22 08/28/23 aerosol inhaler (Ventolin HFA) Previous Rx's ?Medication ?Instructions ?Recorded cetirizine 10 mg tablet 10 mg PO DAILY #90 tabs 10/13/21 naproxen 500 mg tablet 500 mg PO BID PRN pain 5 days #10 04/25/23 tabs norelgestromin 150 mcg-e.estradiol 1 patch topical QWEEK #9 ea 08/28/23 35 mcg/24 hr weekly transderm patch (Xulane) ibuprofen 600 mg tablet 600 mg PO Q8H PRN pain #20 tabs 10/30/23 oxycodone 5 mg tablet 5 mg PO BID PRN pain #10 tabs 10/30/23 clindamycin phosphate 1 % topical 1 appl topical DAILY #30 grams 12/13/23 gel ondansetron 4 mg disintegrating 4 mg PO Q8H 3 days #9 tabs 03/24/24 tablet Allergies Allergy/AdvReac Type Severity Reaction Status Date / Time No Known Allergies Allergy Verified 03/24/24 08:31 [No Known Allergies*] Review of Systems Constitutional: Constitutional: Reports no additional constitutional complaints, Denies chills, Denies fever(s) and Denies night sweats Eyes: Eyes: Reports no additional eye complaints, Denies blurry vision, Denies change in vision, Denies diplopia, Denies eye discharge, Denies loss of vision and Denies eye pain ENT: Denies dizziness Cardiovascular: Cardiovascular: Reports no additional cardiovascular complaints, Denies chest pain, Denies lightheadedness, Denies Loss of Consciousness and Denies dyspnea Respiratory: Respiratory: Reports no additional respiratory complaints and Denies dyspnea Gastrointestinal: Gastrointestinal: Reports no additional gastrointestinal complaints, Reports abdominal pain (when vomiting - not at rest), Denies melena, Denies hematochezia, Denies change in bowel habits, Denies change in stool character, Reports diarrhea, Reports nausea and Reports vomiting Genitourinary: Genitourinary: Denies hematuria, Denies urinary frequency, Denies dysuria, Denies urinary incontinence, Denies urinary hesitancy and Denies urinary urgency Musculoskeletal: Musculoskeletal: Reports no additional musculoskeletal complaints, Denies numbness and Denies tingling Neurologic: Denies dizziness, Denies loss of vision, Denies numbness and Denies tingling Psychiatric: Psychiatric: Reports no additional psychiatric complaints Endocrine: Endocrine: Reports no additional endocrine complaints Hematologic/Lymphatic: Hematologic/Lymphatic: Reports no additional hematologic/lymphatic complaints Allergic/Immunologic: Allergic/Immunologic: Reports no additional allergic/immunologic complaints FOR[facility]LY [facility], [facility] Past Medical History Attestation statement: The following information was validated with the patient. Source: old records reviewed and nursing notes reviewed Medical History Physical exam Encounter to establish care Left shoulder pain Low back pain Exposure to STD Screen for sexually transmitted diseases COVID-19 virus infection [place] Well woman exam with routine gynecological exam Libido, decreased control counseling History of irregular menstrual cycles Cervical cancer screening Obesity (BMI 35.0-39.9 without comorbidity) Obesity (BMI 30.0-34.9) Anxiety and depression Dental impaction Surgical History Hx of tonsillectomy History of spinal surgery Family History Family History Mother Asthma Carpal tunnel syndrome Father No problems noted. 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 Current occupational exposures/hazards: No Cognitive needs: No Hearing needs: No Vision needs: Yes (glasses) Physical Exam ED Vital Signs: Vital Signs - 24 hr 03/24/24 08:28 03/24/24 11:07 Temperature 99.0 F 97.2 F Pulse Rate 97 91 Respiratory Rate 14 14 Blood Pressure 114/62 101/52 L Pulse Oximetry 100 100 Oxygen Delivery Method Room Air Room Air BMI result Body Mass Index 36.6 Const General: cooperative, no acute distress, alert and awake Nutritional Appearance: well nourished Orientation/consciousness: patient oriented x3 Limitations: no limitations HENMT Head: Yes normal to inspection and Yes atraumatic Ears: hearing grossly normal bilaterally and external ears normal General nose exam: Normal external nose present, no nasal discharge noted and no epistaxis Face and sinus: Yes normal facial exam, No abrasion and No laceration Mouth: Normal oral and palatal mucosa present, no drooling and no muffled voice Eyes General: appearance normal, both eyes and all related structures Periorbital: periorbital findings normal Eyelids: Yes eyelids normal Conjunctivae: conjunctivae normal Pupils: Equal, round and reactive pupils present EOM: EOMs intact bilaterally Neck Neck: Yes normal visual inspection, Yes full ROM and Yes no lymphadenopathy Chest Chest palpation & inspection: normal inspection of the chest Resp Effort & Inspection: normal respiratory effort and able to speak in complete sentences GI Inspection: Yes normal to inspection Palpation (GI): Soft to palpation, not firm, nontender, no guarding and not rigid Neuro General: patient oriented x3 and moves all extremities Cranial nerves: Yes Equal, round and reactive pupils present Cognition (Neuro): normal cognition Extrem General: Yes normal to inspection, Yes full ROM and Yes capillary refill normal Psych Appearance: grossly normal Mental Status: mental status grossly normal Affect: normal affect Attitude: cooperative Thought process: Normal thought process present Thought content: Normal thought content present Insight: Good insight present (Psych) Medications Administered Discontinued Medications Generic Name Dose Route Start Last Admin Trade Name Danielle PRN Reason Stop Dose Admin Sodium Chloride 1,000 mls @ 999 mls/hr 03/24/24 09:30 03/24/24 11:18 Ns IV 03/24/24 10:30 Infused .Q1H1M BEV Infusion Ondansetron HCl 4 mg 03/24/24 09:22 03/24/24 09:52 Ondansetron Hcl 4 Mg/2 Ml Vial IVPUSH 03/24/24 09:23 4 mg ONCE ONE Administration Medical Decision Making Medical Decision Making [facility] Narrative: Patient is a 24 year old assigned female at with a history of depression, anxiety, vertigo, asthma, cervical cyst, ovarian cyst, acne vulgaris, and seasonal allergies presenting to the emergency department today with nausea, vomiting, and diarrhea. Patient's physical exam was unremarkable. Patient's blood work was unremarkable. Patient's urine showed no acute process. I explained my physical exam findings as well as all test results to the patient. I answered all questions asked by the patient. Patient received IV fluids and IV Zofran which, upon re-evaluation, she stated it helped her symptoms significantly. I stressed the importance of the patient taking her medication as directed (either prescribed or as the over the counter packaging recommends). I stressed the importance of the patient following up with her primary care provider. I stressed the importance of the patient returning to the emergency department immediately if her symptoms were to worsen or if she were to develop any dizziness, shortness of breath, difficulty breathing, chest pain, blurry vision, loss of vision, nausea, vomiting, abdominal pain, fever, chills, back pain, or any other complaints. Patient verbalized agreement and understanding with this treatment plan and discharge. Differential Diagnosis Differential Diagnoses: The differential diagnosis associated with the presentation includes Gastroenteritis Enteritis Nausea Vomiting UTI Admission/Observation Consideration of admission/observation: Escalation of care including admission/observation considered Patient would have been admitted to the hospital had her work up had any findings where hospital admission was appropriate and her clinical presentation warranted hospital admission. Lab Data [facility] Lab Attestation statement: I reviewed the patient's lab results. My interpretation of these results are in the MDM Rationale portion of this note. 03/24/24 09:47 03/24/24 09:47 Labs: Lab Results 03/24/24 Range/Units 09:47 WBC 7.0 (4.8-10.8) X10*3/uL RBC 4.92 (4.20-5.50) X10*6/uL Hgb 12.5 (12.0-16.0) g/dl Hct 37.9 (37.0-47.0) % MCV 77.0 L (80.0-98.0) fL MCH 25.4 L (27.0-33.0) pg MCHC 33.0 (31.0-35.0) g/dl RDW 14.0 (11.0-16.0) % Plt Count 219 (160-400) X10*3/uL MPV 9.9 (9.4-12.3) fL Immature Gran % (Auto) 0.3 (0.0-0.4) % Neut % (Auto) 89.3 H (45-73) % Lymph % (Auto) 4.4 L (20-40) % [place] % (Auto) 6.0 (2-11) % Eos % (Auto) 0.0 (0-4) % Baso % (Auto) 0.0 (0-2) % Lymph # (Auto) 0.3 L (1.2-4.9) X10*3/uL [place] # (Auto) 0.4 (0.1-1.2) X10*3/uL Eos # (Auto) 0.0 (0.0-0.4) X10*3/uL Baso # (Auto) 0.0 (0.0-0.2) X10*3/uL Abs Immat Gran (auto) 0.02 (0.00-0.03) X10*3/uL Absolute Neuts (auto) 6.3 (2.0-8.3) x10*3/uL Absolute Nucleated RBC 0.000 (0.0-0.012) X10*3/uL Nucleated RBC % (auto) 0.0 (0.0-0.2) /100WBC Sodium 140 (135-145) mmol/L Potassium 3.5 (3.3-5.1) mmol/L Chloride 105 (96-108) mmol/L Carbon Dioxide 26 (22-29) mmol/L Anion Gap 13 (12-20) BUN 12 (9-16) mg/dL Creatinine 0.72 (0.5-1.4) mg/dL Estim Creat Clear Calc 124.0 Estimated GFR > 60 Random Glucose 116 H (60-115) mg/dL Calcium 9.0 (8.4-10.2) mg/dL Total Bilirubin 0.6 (0.0-1.0) mg/dL AST 21 (5-31) U/L ALT 13 (0-31) U/L Alkaline Phosphatase 86 (39-117) U/L Total Protein 7.3 (6.5-8.0) g/dL Albumin 4.1 (3.5-5.0) g/dL Beta HCG, Quant < 2 mIU/mL Urine Color Yellow Urine Appearance Clear Urine pH 6.0 (5.0-9.0) Ur Specific [place] >= 1.030 H (1.005-1.025) Urine Protein 30 (1+) H (Neg-Trace) mg/dL Urine Glucose (UA) Negative (Negative) mg/dL Urine Ketones Negative (Negative) mg/dL Urine Blood Negative (Negative) Urine Nitrite Negative (Negative) Ur Leukocyte Esterase Negative (Negative) Urine RBC 0-2 (0-2) /HPF Urine WBC 0-5 (0-5) /HPF Ur Squamous Epith Cells 3-5 (0-2) /HPF Urine Bacteria None Seen (None Seen) Hyaline Casts 0-2 (0-2) /LPF Influenza Type A (PCR) NEGATIVE (Negative) Influenza Type B (PCR) NEGATIVE (Negative) RSV RNA Qual (PCR) NEGATIVE (Negative) SARS-CoV-2 RNA (RT-PCR) NEGATIVE (Negative) Prescription Management I considered prescription management with: Other (patient prescribed anti-emetic) Discharge Plan Discharge Clinical Impression: Gastroenteritis, Nausea & vomiting Patient Disposition: Home, Self-Care Instructions: Gastroenteritis (DC), Acute Nausea and Vomiting (ED) Additional Instructions: Take your medication as prescribed. Follow up with your primary care provider. Return to the emergency department immediately if your symptoms worsen or if you develop any dizziness, shortness of breath, difficulty breathing, chest pain, blurry vision, loss of vision, nausea, vomiting, abdominal pain, fever, chills, back pain, or any other complaints. Prescriptions: New ondansetron 4 mg tablet,disintegrating 4 mg PO Q8H 3 Days Qty: 9 0RF No Action cetirizine 10 mg tablet 10 mg PO DAILY Qty: 90 1RF clindamycin phosphate 1 % gel 1 appl topical DAILY Qty: 30 0RF oxycodone 5 mg tablet 5 mg PO BID PRN (Reason: pain) Qty: 10 0RF Rx Instructions: Partial Fill upon patient request. ibuprofen 600 mg tablet 600 mg PO Q8H PRN (Reason: pain) Qty: 20 0RF albuterol sulfate [Ventolin HFA] 90 mcg/actuation HFA aerosol inhaler 2 puff inhalation Q4-6H PRN (Reason: dyspnea) naproxen 500 mg tablet 500 mg PO BID PRN (Reason: pain) 5 Days Qty: 10 0RF Xulane 150-35 mcg/24 hr patch weekly 1 patch topical QWEEK Qty: 9 4RF Rx Instructions: Apply 1 patch every week for 3 weeks, leave off for 1 week then restart cycle. Referrals: Yessica Calvillo MD [Primary Care Provider] - Stand Alone Forms: Work/School Release Print Language: Syriac
[2024-03-24] MEDS: 0.9 % Sodium Chloride 1,000 ML 999 ML IV (09:52)
[2024-03-24] MEDS: ondansetron HCL 4 MG/2 ML VIAL IVPUSH (09:52)
[2024-03-24 09:53] LABS: MANUAL DIFF FLAG NO
[2024-03-24 09:56] LABS: Hematocrit 37.9 % (37.0-47.0); Hemoglobin 12.5 g/dl (12.0-16.0); Imm Gran Abs Auto 0.02 X10*3/uL (0.00-0.03); Imm Gran Pct Auto 0.3 % (0.0-0.4); Lymphocytes Absolute Auto 0.3 X10*3/uL (1.2-4.9); Lymphocytes Percent Auto 4.4 % (20-40); Mean Corpuscular Hemoglobin 25.4 pg (27.0-33.0); Mean Platelet Volume 9.9 fL (9.4-12.3); Monocytes Absolute Auto 0.4 X10*3/uL (0.1-1.2); Neutrophils Absolute Auto 6.3 x10*3/uL (2.0-8.3); Neutrophils Percent Auto 89.3 % (45-73); Platelet Count 219 X10*3/uL (160-400); Red Blood Count 4.92 X10*6/uL (4.20-5.50)
[2024-03-24 10:06] LABS: Appearance Urine Clear; Color Urine Yellow; Glucose Urine UA Negative (Negative); Leukocyte Esterase Urine Negative (Negative); Nitrite Urine Negative (Negative); Specific Gravity - Urine >= 1.030 (1.005-1.025); UMIC TRIGGER UACC YES; Urine Blood Negative (Negative); Urine Ketones Negative (Negative); Urine Protein 30 (1+) mg/dL (Neg-Trace)
[2024-03-24 10:10] LABS: Alanine Aminotransferase 13 U/L (0-31); Albumin Level 4.1 g/dL (3.5-5.0); Alkaline Phosphatase 86 U/L (39-117); Anion Gap 13 (12-20); Aspartate Amino Transferase 21 U/L (5-31); Bilirubin Total 0.6 mg/dL (0.0-1.0); Blood Urea Nitrogen 12 mg/dL (9-16); Carbon Dioxide 26 mmol/L (22-29); Chloride 105 mmol/L (96-108); Estimated Glomerular Filt Rate > 60; Glucose Random 116 mg/dL (60-115); Potassium 3.5 mmol/L (3.3-5.1); Sodium 140 mmol/L (135-145); Total Protein 7.3 g/dL (6.5-8.0)
[2024-03-24 10:11] LABS: Bacteria Urine None Seen (None Seen); Hyaline Casts Urine 0-2 /LPF (0-2); RBC Urine 0-2 /HPF (0-2); WBC Urine 0-5 /HPF (0-5)
[2024-03-24 10:31] LABS: HCG Quantitative < 2 mIU/mL
[2024-03-24 10:32] LABS: Influenza A PCR NEGATIVE (Negative); Influenza B PCR NEGATIVE (Negative); Resp Syncy Virus RNA Qual PCR NEGATIVE (Negative); SARS COV2 PCR INHOUSE NEGATIVE (Negative)
[2024-03-24 11:07] VITALS: BP 101/52; PULSE 91; RESP 14; TEMP 36.2; O2SAT 100
[2024-03-24 11:29] VITALS: BP 101/52; PULSE 91; RESP 14; TEMP 36.2; O2SAT 100
== END 2024-03-24 11:29 | disposition home or self-care (01) ==
PROVIDERS: Emergency Provider Emergency Medicine; PCP Internal Medicine
DX: K52.9 Noninfective gastroenteritis and colitis, unspecified (principal); R11.2 Nausea with vomiting, unspecified; Z03.818 Encounter for observation for suspected exposure to other biological agents ruled out; Z79.899 Other long term (current) drug therapy
CPT/HCPCS: 0241U; 36415; 80053; 81001; 81003; 84702; 85025; 96361; 96374; 99284; J2405

== ENCOUNTER 2024-05-22 13:02 | Outpatient (REF) | payer BC, SELFPAY ==
--- NOTE | ~2024-05-22 | XR_ITS ---
CLINICAL HISTORY: M53.3 - Sacrococcygeal disorders, not elsewhere classified 3 views sacroiliac joints Comparison: None Findings No acute fractures. No significant degenerative change. No erosions. IMPRESSION: No acute findings This document has been electronically signed by: Forrest Mann MD on 05/23/2024 08:13:14
--- OUTSIDE RECORDS SUMMARY | 2024-05-22 13:12 | XMS_ITS | Data Portability ---
Author Organization [facility], [address] Address [address] [place] [address] Assessment No assessment recorded. Plan of Treatment Reminders Order Date Submit Date Provider Last Modified By Organization Details Last Modified Time Details Appointments None recorded. Lab rapid flu (A+B) 2023 [place] 20[address], [address] [place] [address], [id number], 4 11:30:56 SARS CoV 2 (COVID-19) Ag, QL, IA, upper respiratory specimen 2023 024 [email or web address] 2099[facility], [address] [place] [address], [phone], 4 11:32:28 Referral None recorded. Procedures None recorded. Surgeries None recorded. Imaging None recorded. Medication Orders methocarbam ol 500 mg tablet 2023 024 [facility]/Pharmacy #2024, [address] [place], [address], 4 18:38:06 meloxicam 15 mg tablet 2023 024 [facility]/Pharmacy #2024, [address] [place], [address], 4 18:38:06 fluticasone propionate 50 mcg/actuati on nasal spray,suspe nsion 2023 024 [email or web address] [facility]/Pharmacy #2024, [address] [place], [address], 4 12:04:17 benzonatate 200 mg capsule 2023 024 VANDANA [facility]/Pharmacy #2024, [address] [place] [address], [address], 4 18:25:33 fexofenadin e-pseudoeph edrine ER 180 mg-240 mg tablet,ext. release 24 hr 2022 023 [email or web address] [facility]/Pharmacy #2024, [address] [place] [address], [address], 4 11:14:15 amoxicillin 875 mg-potassiu m clavulanate 125 mg tablet 2022 023 [email or web address] [facility]/Pharmacy #2024, [address] [place] [address], [address], 4 11:14:18 Allergy Relief (fluticason e) 50 mcg/actuati on nasal spray,suspe nsion 2022 023 [email or web address] [facility]/Pharmacy #2024, [address] [place], [address], 4 11:14:21 Patient TargetsNo targets recorded. Patient Instructions Encounter Date Encounter Id Patient Instructions Last Modified By Organization Details Last Modified Time 03/22/2023 [id number] Acute Sinusitis: Care Instructions Not available 03/22/2023 19:15:17 An ear infection may start with a cold and affect the middle ear (otitis media). It can hurt a lot. Most ear infections clear up on their own in a couple of days and do not need antibiotics. Also, antibiotics do not work against viruses, which may be the cause of your infection. Regular doses of pain relievers are the best way to reduce your fever and help you feel better. How can you care for yourself at home? Take pain medicines exactly as directed. If the doctor gave you a prescription medicine for pain, take it as prescribed. If you are not taking a prescription pain medicine, take an qjol-opu-fxfqfqv medicine, such as acetaminophen (Tylenol), ibuprofen (Advil, Motrin), or naproxen (Aleve). Read and follow all instructions on the label. Do not take two or more pain medicines at the same time unless the doctor told you to. Many pain medicines have acetaminophen, which is Tylenol. Too much acetaminophen (Tylenol) can be harmful. Plan to take a full dose of pain reliever before bedtime. Getting enough sleep will help you get better. Try a warm, moist face cloth on the ear. It may help relieve pain. If your doctor prescribed antibiotics, take them as directed. Do not stop taking them just because you feel better. You need to take the full course of antibiotics. Not available 03/22/2023 19:21:24 Sinusitis is an infection of the lining of the sinus cavities in your head. Sinusitis often follows a cold. It causes pain and pressure in your head and face. In most cases, sinusitis gets better on its own in 1 to 2 weeks. But some mild symptoms may last for several weeks. Sometimes antibiotics are needed. if you are having problems. It's also a good idea to know your test results and keep a list of the medicines you take. How can you care for yourself at home? Take an xsja-nul-dciemyf pain medicine. Avoid Ibuprofen, Aleve and Aspirin if . If the doctor prescribed antibiotics, take them as directed. Do not stop taking them just because you feel better. You need to take the full course of antibiotics. Be careful when taking kvkc-rdg-rfwnrkk cold or influenza (flu) medicines and Tylenol at the same time. Many of these medicines have acetaminophen, which is Tylenol. Read the labels to make sure that you are not taking more than the recommended dose. Too much acetaminophen (Tylenol) can be harmful. Breathe warm, moist air from a steamy shower, a hot bath, or a sink filled with hot water. Avoid cold, dry air. Using a humidifier in your home may help. Follow the directions for cleaning the machine. Use saline (saltwater) nasal washes. This can help keep your nasal passages open and wash out mucus and bacteria. You can buy saline nose drops at a grocery store or drugstore. Or you can make your own at home by adding 1 teaspoon (5 millilitres) of salt and 1 teaspoon (5 millilitres) of baking soda to 2 cups (500 mL) of distilled water. If you make your own, fill a bulb syringe with the solution, insert the tip into your nostril, and squeeze gently. Blow your nose. Put a hot, wet towel or a warm gel pack on your face 3 or 4 times a day for 5 to 10 minutes each time. Try a decongestant nasal spray like oxymetazoline (Drixoral). Do not use it for more than 3 days in a row. Using it for more than 3 days can make your congestion worse. Not available 03/22/2023 19:15:16 07/12/2023 [id number] upper respirator y infection (cold): care instructions Not available 07/12/2023 11:30:51 11/22/2023 [id number] getting back to normal after low back pain: care instructions Not available 11/22/2023 18:38:04 Reason for Referral None Reported. Results Created Date Observation Date Name Description Value Unit Range Abnormal Flag Note LastModifiedBy Organization Detail LastModifiedTime 07/12/1907/12/2023 rapid flu (A+B) Unknown Analyte negati ve Not Available claire whittaker [address], [address], 07/12/2023 11:21:50 07/12/19 24 07/12/2023 rapid flu (A+B) Unknown Analyte negati ve Not Available claire [address], [address], 07/12/2023 11:21:50 07/12/1907/12/2023 rapid flu (A+B) Unknown Analyte yes Not Available sil[address], [address], 07/12/2023 11:21:50 07/12/19 24 07/12/2023 SARS CoV 2 (COVI D-19) Ag, QL, IA, upper respi rator y speci men Unknown Analyte positi ve Not Available leonardo whittaker [facility] [address] [place], [address], 07/12/2023 11:22:00 07/12/19 24 07/12/2023 SARS CoV 2 (COVI D-19) Ag, QL, IA, upper respi rator y speci men Unknown Analyte yes Not Available 2099Mirta rosario [facility] [address] [place], [address], 07/12/2023 11:22:00 Result Notes None recorded. Problems No Known Problems Medical Equipment None Reported. Allergies No known drug allergies Medications Name Sig Start Date Stop Date Status Note LastModified by Organization Details LastModified Time methocarbam ol 500 mg tablet Take 2 tablets 3 times a day by oral route for 14 days. 2023 active Not Available Not Available Not Avai lable cetirizine 10 mg tablet TAKE 1 TABLET BY MOUTH EVERY DAY 03/22 completed Not Available Not Available Not Available benzonatate 200 mg capsule TAKE 1 CAPSULE BY MOUTH THREE TIMES A DAY FOR 5 DAYS. NOT COVERED 11/21 completed Not Available Not Available Not Available meloxicam 15 mg tablet TAKE 1 TABLET BY MOUTH EVERY DAY active Not Available Not Available No t Available prednisone 20 mg tablet TAKE 2 TABLETS BY MOUTH EVERY DAY FOR 5 DAYS 03/22 completed Not Available Not Available Not Available clindamycin 1 % topical gel APPLY TO AFFECTED AREA TOPICALLY EVERY DAY 11/21 completed Not Available Not Available Not Available prednisone 50 mg tablet TAKE 1 TABLET BY MOUTH EVERY DAY FOR 5 DAYS 03/22 completed Not Available Not Available Not Available docusate sodium 100 mg capsule TAKE 1 CAPSULE (100 MG) ORALLY DAILY NEEDED FOR CONSTIPAT ION FOR 90 DAYS 03/22 completed Not Available Not Available Not Available ibuprofen 600 mg tablet TAKE 1 TAB ORALLY EVERY 8 HOURS NEEDED FOR PAIN active Not Available Not Available No t Available fluticasone propionate 50 mcg/actuati on nasal spray,suspe nsion SPRAY 1 SPRAY EVERY DAY BY INTRANASA L ROUTE DIRECTED FOR 90 DAYS. active Not Available Not Available No t Available naproxen 500 mg tablet TAKE 1 TABLET ORALLY 2 TIMES A DAY NEEDED FOR PAIN FOR 5 DAYS 07/11 completed Not Available Not Available Not Available amoxicillin 875 mg-potassiu m clavulanate 125 mg tablet TAKE 1 TABLET EVERY 12 HOURS BY ORAL ROUTE WITH MEAL(S) FOR 10 DAYS. 07/11 completed Not Available Not Available Not Available Ventolin HFA 90 mcg/actuati on aerosol inhaler INHALE 2 PUFFS BY MOUTH EVERY 4 TO 6 HOURS NEEDED FOR DYSPNEA 03/22 completed Not Available Not Available Not Available oxycodone 5 mg tablet TAKE 1 TABLET BY MOUTH TWICE A DAY NEEDED FOR PAIN active Not Available Not Available No t Available Xulane 150 mcg-35 mcg/24 hr transdermal patch APPLY 1 PATCH EVERY WEEK FOR 3 WEEKS, LEAVE OFF FOR 1 WEEK THEN RESTART CYCLE. active Not Available Not Available No t Available Allergy Relief-D (fexofenadi ne) 180 mg-240 mg tablet,ext. release 24 hr TAKE 1 TABLET EVERY DAY BY ORAL ROUTE IN THE EVENING FOR 10 DAYS. 07/11 completed Not Available Not Available Not Available Vitals Date Recorded Body weight Body mass index (BMI) Body height Oxygen saturation Oxygen saturation in Arterial blood by Pulse oximetry Pain severity - 0-10 verbal numeric rating [Score] - Reported Heart rate Respiratory rate Body temperature Systolic blood pressure Diastolic blood pressure Provider Name and Address Organization Details Last Updated DateTime 3 96796.5 5 g 34.8 kg/m2 157.48 cm 99 % 99 % 5 82 /min 18 /min 98.6 [degF] 131 mm[Hg] 83 mm[Hg] Rocío Marshall PA - [facility] 3 19:13:03 Date Recorded Body height Provider Name an d Address Organization Details Last Updated DateTime 07/12/2023 157.48 cm MARLA RAMÍREZ PA - [facility] 07/12/2023 11:13:15 Date Recorded Body mass index (BMI) Body weight Oxygen saturation Oxygen saturation in Arterial blood by Pulse oximetry Heart rate Respiratory rate Body temperature Systolic blood pressure Diastolic blood pressure Provider Name and Address Organization Details Last Updated DateTime 4 34.8 kg/m2 92158.5 5 g 100 % 100 % 73 /min 18 /min 98.7 [degF] 116 mm[Hg] 80 mm[Hg] Yoly Cutler PA - [facility] 4 11:17:09 Date Recorded Body height Body mass index (BMI) Body weight Pain severity - 0-10 verbal numeric rating [Score] - Reported Body temperature Oxygen saturation Oxygen saturation in Arterial blood by Pulse oximetry Heart rate Respiratory rate Systolic blood pressure Diastolic blood pressure Provider Name and Address Organization Details Last Updated DateTime 4 157.48 cm 34.8 kg/m2 23831.5 5 g 7 97.9 [degF] 100 % 100 % 88 /min 14 /min 121 mm[Hg] 76 mm[Hg] Mercedes Rich[place] PA - [facility] 4 18:30:50 Social History Question Answer Notes LastModified by Organizat ion Details LastModified Time Tobacco Smoking Status Never Smoker Rocío sanabria PA - [facility] 03/22/2023 19:13:51 What Is Your Level Of Alcohol Consumption? None Information not available 03/22/2023 Are You Currently Employed? Yes Information not available 03/22/2023 Have You Had A Flu Shot This Season? Yes Information not available 03/22/2023 What Was The Date Of Your Most Recent Tobacco Screening? 07/12/2023 [email or web address] Information not available 07/12/2023 What Is Your Relationship Status? Domestic Partner Information not available 03/22/2023 Do You Use Any Illicit Or Recreational Drugs? No Information not available 03/22/2023 Have You Recently Traveled Abroad? No Information not available 03/22/2023 Are You Currently In School? No Information not available 03/22/2023 Do You Or Have You Ever Used Any Other Forms Of Tobacco Or Nicotine? No Information not available 03/22/2023 Sex: Unknown Functional Status None recorded. Mental Status None recorded. Family History Relationship Description Onset Age of this Age Resolved Age Notes LastModified by Organization Details LastModified Time Father No current problems or disability Not available 03/22 19:13:39 Mother No current problems or disability Not available 03/22 19:13:39 Medical History No medical history recorded. Gynecological History Statement/Question Response Date of LMP 10/25/2023 Is there any chance of ? No LMP Approximate Obstetrics History GPAL:G 0 P 0 0 0 0 Past Encounters Encounter ID Performer Location Encounter Start Date Encounter Closed Date Diagnosis/Indication Diagnosis SNOMED-CT Code Diagnosis ICD10 Code Diagnosis Note [id number] [address] [place] [address] 11/12/2020 18:00:40 11/12/2020 19:53:12 [id number] [address] [place] [address] 01/21/2019 18:30:20 01/21/2019 19:38:35 [id number] [place] [address] [place] [address] 03/22/2023 18:57:41 03/22/2023 19:24:05 Acute sinusitis 29188670 J01.90 Acute sero us otitis media of bilateral ears [id number] H65.03 [id number] [facility]ERTO Jc [address] [place] [address] 07/12/2023 11:09:18 07/12/2023 11:40:57 Upper respiratory infection 46739957 J06.9 Patient presented with symptoms of upper respirator y infection. Advised to drink plenty of fluids, run a cool-mist humidifier in room at night, gargle salt water for sore throat, and get plenty of rest. Patient should avoid over-exert ion and reduce exposure to irritants such as smoke, cold, dry air, and dust.Treat ment currently involves symptomati c relief. Nasal sprays like nasonex and flonase (or generic) as well as neti pot to help clear sinuses Patient may take acetaminop hen or ibuprofen as directed to reduce fever and body aches.Anti histamine and decongesta nt usage was discussed and recommenda tions made.Patie nt understood these instructio ns and will follow up in the office in 10 days to 2 weeks if symptoms not improving. ER if any shortness of breath/nakita st pain or worsening. Thank you for using [facility] today, please feel free to contact our office if you have any questions or concerns. [id number] [facility] Jc [address] [facility] [address] [place] [address] 11/22/2023 18:15:34 11/22/2023 18:56:54 Spasm of muscle of lower back [id number] M62.830 Sit or lie in positions that are most comfortabl e and reduce your pain. Try one of these positions when you lie down: Lie on your back with your knees bent and supported by large pillows.Li e on the floor with your legs on the seat of a sofa or chair.Lie on your side with your knees and hips bent and a pillow between your legs.Lie on your stomach if it does not make pain worse. Do not sit up in bed, and avoid soft couches and twisted positions. Bedrest can help relieve pain at first, but it delays healing. Avoid bedrest after the first day of back pain. Change positions every 30 minutes. If you must sit for long periods of time, take breaks from sitting. Get up and walk around, or lie in a comfortabl e position. Try using a heating pad on a low or medium setting for 15 to 20 minutes every 2 or 3 hours. Try a warm shower in place of one session with the heating pad. You can also try an ice pack for 10 to 15 minutes every 2 to 3 hours. Put a thin cloth between the ice pack and your skin. If the doctor gave you a prescripti on medicine for pain, take it as prescribed . If you are not taking a prescripti on pain medicine, ask your doctor if you can take an over-the-c ounter medicine. Take short walks several times a day. You can start with 5 to 10 minutes, 3 or 4 times a day, and work up to longer walks. Walk on level surfaces and avoid hills and stairs until your back is better. Return to work and other activities as soon as you can. Continued rest without activity is usually not good for your back. To prevent future back pain, do exercises to stretch and strengthen your back and stomach. Learn how to use good posture, safe lifting techniques , and proper body mechanics. Go to the ED immediatel y if you have any numbness or tingling into your buttocks or legs, and loss of strength in legs, loss of bowel or bladder control, or severe pain. Thank you for using [facility] today, please feel free to contact our office if you have any questions or concerns. Health Concerns Section Related Observation LastModified by Organization Detai ls LastModified Time None Recorded Concern Status LastModified by Organization Details LastModified Time None Recorded Advance Directives Directive None Recorded Payers Encounter Date Sequence Insurance Name Policy Number Policy Mackey Covered Member ID Mackey Member ID Guarantor Name 01/21/2019 1 [facility] [employer] (MEDICAID REPLACEMENT - HMO) NEHEMIAS Pemberton [id number] Kamille Pemberton 11/12/2020 1 [facility] [employer] (MEDICAID REPLACEMENT - HMO) NEHEMIAS Pemberton [id number] Kamille Pemberton 03/22/2023 1 [facility] [employer] (MEDICAID REPLACEMENT - HMO) NEHEMIAS Pemberton [id number] Kamille Pemberton 07/12/2023 1 [facility] (MEDICAID REPLACEMENT - HMO) NEHEMIAS Pemberton [id number] Kamille Pemberton 11/22/2023 1 [facility] [employer] (MEDICAID REPLACEMENT - HMO) NEHEMIAS Pemberton [id number] Kamille Pemberton Notes Date Note Type Note Provider Name and Address Organization Details Recorded Time 03/22/2023 text/html Sinus Complaints UCReported bypatient.Location: sinus pain;facial pain;sinus pressure Associated Symptoms:no fever; no nausea or vomiting; no sore throat; no ear fullness; no nasal itching; no eye itching; no dizziness;difficult y breathing;Post nasal drip;nasal passage blockage;cough Onset/Timing:worse in am; worse in pm; initially started 2weeks ago Quality:minimal discomfort;worsenin g; clear Duration:frequent Severity:moderate Context:no recent upper respiratory infection; no recent sick contacts; not worse with seasonal allergen exposure;worse with environmental exposure Risk Factors:no current smoking or tobacco use; no history of nasal trauma Alleviating factors:oral steroids Aggravating factors:worse during an upper respiratory infection (a cold); worse with excess fatigue Prior Treatmentoral decongestant Demondkamron Tavaresaz, [employer] [address] [place], [address], [place] PA - [facility] 03/22/2023 19:21:32 07/12/2023 text/html 23 y/o female he re with 3 days of cough, congestion, runny nose, ear pain HUMBERTO Jc [address] [place], [address], [place] PA - [facility] 07/12/2023 11:34:45 11/22/2023 text/html 23 y/o female he re with R sided low back pain and L sided neck pain. Was seen in the ED a month ago at [place], had imaging, diagnosed with pinched nerve. Some improvement with ibuprofen 600mg 4 times a day. 2 weeks ago, she picked up a heavy box to move it and the pain got much worse again HUMBERTO Jc [address] [place], [address], [place] PA - [facility] 11/22/2023 18:42:53 OBGyn Episode No OBEpisode recorded.
[2024-05-22 15:31] LABS: Influenza A PCR NEGATIVE (Negative); Influenza B PCR NEGATIVE (Negative); Resp Syncy Virus RNA Qual PCR NEGATIVE (Negative); SARS COV2 PCR INHOUSE NEGATIVE (Negative)
[2024-05-22 16:06] LABS: Thyroid Stimulating Hormone 2.01 uIU/mL (0.32-4.0)
[2024-05-23 18:33] LABS: DHEA Sulfate 133 mcg/dL (14-349); Prolactin 3.8 ng/mL
[2024-05-29 19:24] LABS: Testosterone, Total 42 ng/dL (2-45)
== END 2024-05-22 13:03 | disposition home or self-care (01) ==
LOC: HO.XRAY 13:02
PROVIDERS: Absent Provider Advanced Practice Midwife; PCP Internal Medicine; Visit Provider Internal Medicine
DX: E66.9 Obesity, unspecified (principal); M53.3 Sacrococcygeal disorders, not elsewhere classified; R09.89 Other specified symptoms and signs involving the circulatory and respiratory systems; N92.6 Irregular menstruation, unspecified; L70.0 Acne vulgaris; Z87.42 Personal history of other diseases of the female genital tract
CPT/HCPCS: 0241U; 36415; 72200; 82627; 84146; 84402; 84403; 84443

== ENCOUNTER → 2024-05-22 13:07 | Outpatient (BNV) | payer BC, SELFPAY | PROVIDERS: Absent Provider Advanced Practice Midwife; PCP Internal Medicine; Visit Provider Specialist | DX: M53.3 Sacrococcygeal disorders, not elsewhere classified (principal) | CPT/HCPCS: 72200 ==

== ENCOUNTER 2024-09-23 11:18 | Outpatient (AMB) | payer OTHER, SELFPAY ==
[2024-09-23 11:21] VITALS: BP 118/70; PULSE 66; TEMP 36.9; O2SAT 99; BMI 38.6
--- NOTE | 2024-09-23 11:21 | AM.OFFWIN_ITS ---
Intake Vital Signs 09/23/24 11:21 Height 5 ft 2 in Weight 211 lb 2 oz BMI 38.6 BP 118/70 Blood Pressure Location Lt brachial Position Sitting Pulse 66 Pulse Source Pulse Oximeter Temp 98.4 F Temp Source Oral Pulse Oximetry (%) 99 Oxygen Delivery Method Room Air Intake Visit Reasons: EP ? pull muscle on the RT side of neck Intake Note: Patient present with right sided neck pain times 2 days Patient Tobacco Use Status: Never used Tobacco Corporate Intern Required: No Allergies No Known Allergies [No Known Allergies*] Allergy (Verified 09/23/24 11:27) Do you need a note to return to daycare/school/sports/work: Yes HPI HPI Comments History of Present Illness Details History of Present Illness - The patient is a 24-year-old female pr esenting with neck pain. - Symptoms commenced two days prior, pre dominantly affecting the right side of the neck. - The patient observes pain with certain arm movements but denies associated numbness, tingling, or headaches. - She had no trauma or falls. - She has no back pain, left sided neck pain, chest pain, or SOB. - She has not tried anything for her gaetano n. sacral pain - Tailbone pain persists, with prior aldo ging indicating no abnormalities. - She states that it feels like pins and needles. She has already discussed this with her PCP. - Past surgical intervention for scolios is might factor into the musculoskeletal symptoms, particularly given the hardware in place. - She states that she has constant sharp pain in the tailbone and pain is worse when she sits. - She denies saddle anesthesia or incont inence. She denies trauma or fall. She denies back pain. She denies redness or abscesses. Physical Exam General: Cooperative, healthy appearing, comfortable, no acute distress and well developed Neck: Normal visual inspection and Yes full ROM. No midline cervical spinous tenderness noted. No step offs noted. No TTP of the paravertebral muscles. TTP of the right SCM and trapezius Respiratory: Normal respiratory effort and able to speak in complete sentences. Clear to auscultation bilaterally Cardiovascular: Regular rate and rhythm. Normal S1 and S2 Skin: No rashes or lesions noted Neuro: Patient oriented x3. Sensation is intact. Extremities: Normal to inspection. No rashes or lesions noted in the area. FROM of the right shoulder. Strength is 5/5 on the UE bilaterally. Hand librarian special library is intact. No TTP of the coccyx noted. Patient was informed and verbally consented to the use of an ambient scribe for clinic note documentation during this visit. [facility] Medical History Physical exam Encounter to establish care Left shoulder pain Low back pain Exposure to STD Screen for sexually transmitted diseases COVID-19 virus infection [place] Well woman exam with routine gynecological exam Libido, decreased control counseling History of irregular menstrual cycles Cervical cancer screening Obesity (BMI 35.0-39.9 without comorbidity) Obesity (BMI 30.0-34.9) Anxiety and depression Dental impaction Surgical History Hx of tonsillectomy History of spinal surgery Family History Mother Asthma Carpal tunnel syndrome Father No problems noted. 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 Current occupational exposures/hazards: No Cognitive needs: No Hearing needs: No Vision needs: Yes (glasses) Female Reproductive History Menstrual Age of Menarche: 10 Review of Systems Const All systems reviewed & are unremarkable except as noted in HPI and below Physical Exam Vital Signs: Last Vital Signs Temp 98.4 F 09/23/24 11:21 Pulse 66 09/23/24 11:21 BP 118/70 09/23/24 11:21 Pulse Ox 99 09/23/24 11:21 Oxygen Delivery Method Room Air 09/23/24 11:21 BMI result Body Mass Index 38.6 Assessment & Plan Assessment & Plan (1) Sacral pain: Code(s): M53.3 - Sacrococcygeal disorders, not elsewhere classified (2) Neck pain: Code(s): M54.2 - Cervicalgia Plan Most likely strain vs cervical radiculopathy Plan - Prescribed muscle relaxant for neck muscle spasm relief. - Recommended Tylenol or Motrin for pain control. - Advised heat application via heating pad for muscle tension relief. - Encouraged performance of gentle neck stretches to maintain mobility. - Instructed to return for further evaluation if symptoms worsen or fail to improve. - Consider MRI for persistent coccyx pain due to previous scoliosis surgery if no symptom improvement. Medications: New cyclobenzaprine 5 mg PO Q8H 7 days PRN 21 tabs 0RF Muscle Spasm Coding Level of Care Code Est Pt Level 4 (29226) Diagnoses Sacral pain M53.3 Neck pain M54.2
--- OUTSIDE RECORDS SUMMARY | 2024-09-23 12:57 | XMS_ITS | Data Portability ---
Author Organization [facility], [address] Address [address] [place] [address] Assessment No assessment recorded. Plan of Treatment Reminders Order Date Submit Date Provider Last Modified By Organization Details Last Modified Time Details Appointments None recorded. Lab rapid flu (A+B) 2023 024 MOBILE [address], [address] [place] [address], [id number], 4 11:30:56 SARS CoV 2 (COVID-19) Ag, QL, IA, upper respiratory specimen 2023 024 [email or web address] 2099_[facility], [address] [place] [address], [phone], 4 11:32:28 Referral None recorded. Procedures None recorded. Surgeries None recorded. Imaging None recorded. Medication Orders methocarbam ol 500 mg tablet 2023 024 [facility]/Pharmacy #2024, [address] [place], [address], 4 18:38:06 meloxicam 15 mg tablet 2023 024 [facility]/Pharmacy #2024, [address] [place], [address], 4 18:38:06 fluticasone propionate 50 mcg/actuati on nasal spray,suspe nsion 2023 024 [email or web address] [facility]/Pharmacy #2024, [address] [place], [address], 4 12:04:17 benzonatate 200 mg capsule 2023 024 VANDANA [facility]/Pharmacy #2024, [address] [place] [address], [address], 4 18:25:33 fexofenadin e-pseudoeph edrine ER 180 mg-240 mg tablet,ext. release 24 hr 2022 023 [email or web address] [facility]/Pharmacy #2024, [address] [place] [address], [address], 4 11:14:15 amoxicillin 875 mg-potassiu m clavulanate 125 mg tablet 2022 023 [email or web address] [facility]/Pharmacy #2024, [address] [place] [address], [address], 4 11:14:18 Allergy Relief (fluticason e) 50 mcg/actuati on nasal spray,suspe nsion 2022 023 [email or web address] [facility]/Pharmacy #2024, [address] [place], [address], 4 11:14:21 Patient TargetsNo targets recorded. Patient Instructions Encounter Date Encounter Id Patient Instructions Last Modified By Organization Details Last Modified Time 03/22/2023 [id number] Acute Sinusitis: Care Instructions Not available 03/22/2023 [...] taking a prescription pain medicine, take an tvbv-fkp-zwcuezq medicine, such as acetaminophen (Tylenol), ibuprofen (Advil, [...] care for yourself at home? Take an ptvt-xmq-loalsiw pain medicine. Avoid Ibuprofen, Aleve and Aspirin if . If the doctor prescribed antibiotics, take them as directed. Do not stop taking them just because you feel better. You need to take the full course of antibiotics. Be careful when taking mmfa-owl-gtmtmfj cold or influenza (flu) medicines and Tylenol [...] congestion worse. Not available 03/22/2023 19:15:16 07/12/2023 [id number] upper respirator y infection (cold): care instructions Not available 07/12/2023 11:30:51 11/22/2023 [id number] getting back to normal after low back pain: care instructions Not available 11/22/2023 18:38:04 Reason for Referral None Reported. Results Created Date Observation Date Name Description Value Unit Range Abnormal Flag Note LastModifiedBy Organization Detail LastModifiedTime 07/12/1907/12/2023 rapid flu (A+B) Unknown Analyte negati ve Not Available claire whittaker [address], [address], 07/12/2023 11:21:50 07/12/19 24 07/12/2023 rapid flu (A+B) Unknown Analyte negati ve Not Available claire [address], [address], 07/12/2023 11:21:50 07/12/1907/12/2023 rapid flu (A+B) Unknown Analyte yes Not Available silvia[address], [address], 07/12/2023 11:21:50 07/12/19 24 07/12/2023 SARS CoV 2 (COVI D-19) Ag, QL, IA, upper respi rator y speci men Unknown Analyte positi ve Not Available leonardo whittaker [facility] [address] [place], [address], 07/12/2023 11:22:00 07/12/19 24 07/12/2023 SARS CoV 2 (COVI D-19) Ag, QL, IA, upper respi rator y speci men Unknown Analyte yes Not Available 2099Mirta rosario [facility] [address] [place], [address], 07/12/2023 11:22:00 Result Notes None recorded. Problems [...] Available Not Available Vitals Date Recorded Body height Provider Name an d Address Organization Details Last Updated DateTime 07/12/2023 157.48 cm MARLA RAMÍREZ [employer] [facility] 07/12/2023 11:13:15 Date Recorded Body mass index (BMI) Body weight Oxygen saturation Oxygen saturation in Arterial blood by Pulse oximetry Heart rate Respiratory rate Body temperature Systolic blood pressure Diastolic blood pressure Provider Name and Address Organization Details Last Updated DateTime 4 34.8 kg/m2 73887.5 5 g 100 % 100 % 73 /min 18 /min 98.7 [degF] 116 mm[Hg] 80 mm[Hg] Yoly Cutler PA - [facility] 11:17:09 Date Recorded Body height Body mass index (BMI) Body weight Body temperature Oxygen saturation Oxygen saturation in Arterial blood by Pulse oximetry Heart rate Respiratory rate Systolic blood pressure Diastolic blood pressure Provider Name and Address Organization Details Last Updated DateTime 4 157.48 cm 34.8 kg/m2 10080.5 5 g 97.9 [degF] 100 % 100 % 88 /min 14 /min 121 mm[Hg] 76 mm[Hg] Mercedes Blake PA - [facility] 4 18:30:50 Date Recorded Body weight Body mass index (BMI) Body height Oxygen saturation Oxygen saturation in Arterial blood by Pulse oximetry Heart rate Respiratory rate Body temperature Systolic blood pressure Diastolic blood pressure Provider Name and Address Organization Details Last Updated DateTime 3 86273.5 5 g 34.8 kg/m2 157.48 cm 99 % 99 % 82 /min 18 /min 98.6 [degF] 131 mm[Hg] 83 mm[Hg] Rocío Marshall PA - [facility] 3 19:13:03 Social History Question Answer Notes LastModified by Organizat ion Details LastModified Time Tobacco Smoking Status Never Smoker Rocío Marshall elly PA - [facility] 03/22/2023 19:13:51 Have You Had A Flu Shot This Season? Yes Information not available 03/22/2023 What Was The Date Of Your Most Recent Tobacco Screening? 07/12/2023 [email or web address] Information not available 07/12/2023 What Is Your Relationship Status? Domestic Partner Information not available 03/22/2023 Have You Recently Traveled Abroad? No Information not available 03/22/2023 Are You Currently In School? No Information not available 03/22/2023 Sex: Unknown Functional Status Question Answer Note LastModified by Uleizat ion Details LastModified Time Do you use any illicit or recreational drugs? No Information not available 03/22/2023 Do you or have you ever used any other forms of tobacco or nicotine? No Information not available 03/22/2023 What is your level of alcohol consumption? None Information not available 03/22/2023 Are you currently employed? Yes Information not available 03/22/2023 Mental Status None recorded. Family History Relationship [...] SNOMED-CT Code Diagnosis ICD10 Code Diagnosis Note [id number] [address] [place] [address] 11/12/2020 18:00:40 11/12/2020 19:53:12 [id number] [address] [facility] [place] [address] 01/21/2019 18:30:20 01/21/2019 19:38:35 [id number] Demond Payne NP [address] [place] [address] 03/22/2023 18:57:41 03/22/2023 19:24:05 Acute sinusitis 05740964 J01.90 Acute sero us otitis media of bilateral ears 8156292716 281760 H65.03 [id number] HUMBERTO Jc [address] [place] [address] 07/12/2023 11:09:18 07/12/2023 11:40:57 Upper respiratory infection 56716282 J06.9 Patient presented with symptoms of upper [...] nt usage was discussed and recommenda tions made.Enid nt understood these instructio ns and will follow up in the office in 10 days to 2 weeks if symptoms not improving. ER if any shortness of breath/nakita st pain or worsening. Thank you for using [facility] today, please feel free to contact our office if you have any questions or concerns. [id number] HUMBERTO Jc [address] [place] [address] 11/22/2023 18:15:34 11/22/2023 18:56:54 Spasm of muscle of lower back [id number] M62.830 Sit or lie in positions that [...] or severe pain. Thank you for using [facility] today, please feel free to contact our office if you have any questions or concerns. Health Concerns Section Related Observation LastModified by Organization Detai ls LastModified Time None Recorded Concern Status LastModified by Organization Details LastModified Time None Recorded Advance Directives Directive None Recorded Payers Insurance Date Sequence Insurance Name Policy Number Policy Mackey Covered Member ID Mackey Member ID Guarantor Name 11/22/2023 1 [facility] (MEDICAID REPLACEMENT - HMO) NEHEMIAS Pemberton [id number] Kamille Pemberton Notes Date Note Type Note [...] worse with excess fatigue Prior Treatmentoral decongestant Demond Payne NP [address] [place], [address], PA - [facility] 03/22/2023 19:21:32 07/12/2023 text/html 23 y/o female he re with 3 days of cough, congestion, runny nose, ear pain HUMBERTO Jc [address] [place], [address], PA - [facility] 07/12/2023 11:34:45 11/22/2023 text/html 23 y/o female he re with R sided low back pain and L sided neck pain. Was seen in the ED a month ago at [facility], had imaging, diagnosed with pinched nerve. Some improvement with ibuprofen 600mg 4 times a day. 2 weeks ago, she picked up a heavy box to move it and the pain got much worse again HUMBERTO Jc [address] [place], [address], PA - [facility] 11/22/2023 18:42:53 OBGyn Episode No OBEpisode recorded.
== END 2024-09-23 12:16 | disposition home or self-care (01) ==
PROVIDERS: PCP Internal Medicine; Visit Provider Physician Assistant Medical
DX: M53.3 Sacrococcygeal disorders, not elsewhere classified (principal); M54.2 Cervicalgia

== ENCOUNTER → 2024-09-23 11:18 | Outpatient (BNVA) | payer OTHER, SELFPAY | PROVIDERS: PCP Internal Medicine; Visit Provider Physician Assistant Medical | DX: M53.3 Sacrococcygeal disorders, not elsewhere classified (principal); M54.2 Cervicalgia | CPT/HCPCS: 99212 ==